=== PATIENT | male | born 1945 | race Caucasian/White ===

== ENCOUNTER 2017-01-28 20:25 | Emergency (ER) | payer MEDICARE ==
[2017-01-28 20:37] VITALS: BP 179/90; PULSE 75; RESP 18; TEMP 98.5; O2SAT 96
[2017-01-28] MEDS ORDERED: Naproxen 550 mg Tab PO STA (21:04)
--- NOTE | 2017-01-28 21:10 | C.PDOC ---
History Of Present Illness Patient is a 71 year old male who presents to the ER with a complaint of pain and swelling to the nose. Patient states 10 days ago he removed hair from his nostrils and since then the pain has worsened. Patient reports using antibiotic ointment with no improvement. Denies any known allergies, fever or chills. Time Seen by Provider: 01/28/17 20:39 Chief Complaint (Nursing): ENT Problem History/Exam Limitations: None Onset/Duration Of Symptoms: Days (10) Past Medical History Reviewed: Historical Data, Nursing Documentation, Vital Signs Vital Signs: Last Vital Signs Temp 98.5 F 01/28/17 20:35 Pulse 75 01/28/17 20:35 Resp 18 01/28/17 20:35 BP 179/90 H 01/28/17 20:35 Pulse Ox 96 01/28/17 23:10 - Medical History PMH: HTN Surgical History: No Surg Hx Family History: States: Unknown Family Hx - Social History Hx Tobacco Use: No Hx Alcohol Use: No Hx Substance Use: No - Immunization History Hx Tetanus Toxoid Vaccination: No Hx Influenza Vaccination: No Hx Pneumococcal Vaccination: No Review Of Systems Constitutional: Negative for: Fever, Chills ENT: Positive for: Nose Pain, Other (Nose Swelling) Physical Exam - Physical Exam Appears: Well, Non-toxic, No Acute Distress Skin: Normal Color, Warm, Dry Head: Atraumatic, Normacephalic Eye(s): bilateral: Normal Inspection, EOMI Nose: No Discharge, No Epistaxis, Tenderness, No Septal Hematoma, Other (Right nostril erythema and swelling. No pustules or ilcerations intranasally) Oral Mucosa: Moist Throat: Normal, No Erythema, No Drooling Neck: Normal ROM, Supple Lymphatic: No Adenopathy Chest: Symmetrical Cardiovascular: Rhythm Regular Respiratory: Normal Breath Sounds, No Accessory Muscle Use, Other (Speaking in full sentences) Neurological/Psych: Oriented x3, Normal Speech, Other (No focal deficits) ED Course And Treatment O2 Sat by Pulse Oximetry: 96 Progress Note: Keflex and anaprox PO administered. Ice bag applied to the afflicted area. Patient instructed to follow up for wound check in 3 days or sooner if symptoms persist or worsen. Disposition - Disposition Disposition: HOME/ ROUTINE Disposition Time: 21:06 Condition: STABLE Additional Instructions: Follow up with primary medical doctor in 1-3 days without fail for further evaluation. Take medications as prescribed. Return to the emergency department at any time if symptoms persist or worsen. Prescriptions: Mupirocin 2% Cream [Bactroban Cream] 30 applic TOP BID #1 tube Sulfamethoxazole/Trimethoprim [Bactrim DS 800 mg-160 mg] 1 tab PO BID #14 tab Instructions: Cellulitis (ED) - Clinical Impression Clinical Impression: Cellulitis - Scribe Statement The provider has reviewed the documentation as recorded by the Tamiibhernan Freire All medical record entries made by the Jose were at my direction and personally dictated by me. I have reviewed the chart and agree that the record accurately reflects my personal performance of the history, physical exam, medical decision making, and the department course for this patient. I have also personally directed, reviewed, and agree with the discharge instructions and disposition.
[2017-01-28] MEDS ORDERED: Naproxen 550 mg Tab PO ONE (21:14)
== END 2017-01-28 21:22 | disposition home or self-care (01) ==
LOC: C.ER 20:25
DX: J34.0 Abscess, furuncle and carbuncle of nose (principal)